=== PATIENT | female | born 1940 | race Caucasian/White ===

== ENCOUNTER → 2016-07-06 | Outpatient (REF) ==
[~2016-07-06] MED LIST: 00186-0370-20 IH; CITRACAL + D CA1 TAB PO; DALIRESP500 MCG PO; FORADIL AERO0.012 MG IH; IRON325 MG PO; LEVAQUIN 5500 MG/TA1 IV; PREDNISONE20 MG PO; PROAIR HFA0.09 MG/AC IH; PROTONIX 40MG T40 MG PO; SYMMETREL50 MG/5 ML PO; VITAMIN D31000 IU PO; ZITHROMAX 250M250 MG PO
[2016-07-06 15:06] LABS: TOTAL IRON BINDING CAPACITY 354 ug/dL (265-497)
[2016-07-06 15:32] LABS: FERRITIN 8 ng/mL (11-264)
== END ==
LOC: ZLAB.WCH 14:41
PROVIDERS: Nurse Practitioner Family
DX: Z01.89 Encounter for other specified special examinations (principal)

== ENCOUNTER → 2016-08-20 | Outpatient (REF) | LOC: ZLAB.WCH 10:48 | DX: Z01.89 Encounter for other specified special examinations (principal) ==

== ENCOUNTER 2016-08-21 16:21 | Inpatient (IN) | payer MEDICARE, BC ==
[~2016-08-21] VITALS: Ht 157.5 cm; Wt 55.0 kg
[2016-08-21] MEDS ORDERED: PROTONIX 40MG T40 MG PO (18:01)
[2016-08-21] MEDS ORDERED: PROAIR HFA0.09 MG/AC IH (18:02)
[2016-08-21 18:03] VITALS: BP 111/61; BP 89/68; PULSE 118; TEMP 99
[2016-08-21] MEDS ORDERED: SYMMETREL50 MG/5 ML PO (18:06)
[2016-08-21] MEDS ORDERED: IRON325 MG PO (18:07)
[2016-08-21] MEDS ORDERED: CITRACAL + D CA1 TAB PO (18:07)
[2016-08-21] MEDS ORDERED: VITAMIN D31000 IU PO (18:08)
[2016-08-21] MEDS ORDERED: 00186-0370-20 IH (18:09)
[2016-08-21] MEDS ORDERED: FORADIL AERO0.012 MG IH (18:10)
[2016-08-21] MEDS ORDERED: DALIRESP500 MCG PO (18:10)
[2016-08-21] MEDS ORDERED: LEVAQUIN 5500 MG/TA1 IV (18:14)
[2016-08-21 22:40] VITALS: BP 101/45; PULSE 100; TEMP 99.1
[2016-08-22] VITALS (12 sets, daily range): BP systolic 104–166; BP diastolic 46–125; PULSE 48–131; TEMP 97.4–99.1
[2016-08-22 06:49] LABS: BASO % 0.2 % (0.0-2.0); EOS # 0.1 (0.0-0.7); EOS % 0.4 % (0-4.0); GRAN # 9.9 (1.4-6.5); GRAN % 84.9 % (42.2-75.2); LYMPH # 0.7 (1.2-3.4); MEAN CELL VOLUME 95 fl (80.0-100.0); MEAN CORPUSCULAR HGB CONC 30 g/dl (33.0-37.0); MEAN PLATELET VOLUME 10.7 fl (7.4-10.4); MONO # 0.9 (0.1-0.6); MONO % 8.1 % (1.7-9.3); PLATELET COUNT 283 K/mm3 (130-400); RED BLOOD COUNT 3.19 M/mm3 (4.10-5.30); REDCELL DISTRIBUTION WIDTH-CV 13.7 % (11.5-14.5); WHITE BLOOD COUNT 11.7 K/mm3 (4.8-10.8)
[2016-08-22 06:52] LABS: HEMATOCRIT 30.4 % (37.0-47.0); HEMOGLOBIN 9.1 g/dl (12.5-16.0); MEAN CORPUSCULAR HEMOGLOBIN 29 pg (27.0-31.0)
[2016-08-22 07:04] LABS: CALCIUM 8.6 mg/dL (8.4-10.2); CREATININE, serum 0.55 mg/dL (0.52-1.25); MAGNESIUM 1.7 mg/dL (1.6-2.3); POTASSIUM 3.2 mmol/L (3.4-5.0)
[2016-08-23 02:25] VITALS: BP 105/67; PULSE 90; TEMP 98.7
[2016-08-23 05:17] VITALS: BP 109/59; PULSE 88; TEMP 98.3
[2016-08-23 08:12] LABS: MEAN CELL VOLUME 96 fl (80.0-100.0); MEAN CORPUSCULAR HGB CONC 30 g/dl (33.0-37.0); MEAN PLATELET VOLUME 11.1 fl (7.4-10.4); PLATELET COUNT 288 K/mm3 (130-400); RED BLOOD COUNT 3.11 M/mm3 (4.10-5.30); REDCELL DISTRIBUTION WIDTH-CV 13.7 % (11.5-14.5); WHITE BLOOD COUNT 7.1 K/mm3 (4.8-10.8)
[2016-08-23 08:18] LABS: CALCIUM 8.4 mg/dL (8.4-10.2); CREATININE, serum 0.58 mg/dL (0.52-1.25)
[2016-08-23 08:29] LABS: HEMATOCRIT 29.7 % (37.0-47.0); HEMOGLOBIN 8.9 g/dl (12.5-16.0); MEAN CORPUSCULAR HEMOGLOBIN 29 pg (27.0-31.0)
[2016-08-23 09:54] VITALS: BP 104/37; PULSE 61; TEMP 98
[2016-08-23 13:34] VITALS: BP 104/43; PULSE 77
[2016-08-23 17:05] VITALS: BP 115/55; PULSE 79; TEMP 98.6
[2016-08-23 22:00] VITALS: BP 120/49; PULSE 110; TEMP 98.1
[2016-08-24 06:30] VITALS: BP 131/70; PULSE 101; TEMP 98.8
[2016-08-24 08:25] LABS: CREATININE, serum 0.62 mg/dL (0.52-1.25)
[2016-08-24 08:36] LABS: POTASSIUM 2.9 mmol/L (3.4-5.0)
[2016-08-24 10:16] VITALS: BP 128/45; PULSE 103; TEMP 98
[2016-08-24 14:00] VITALS: BP 143/82; PULSE 114; TEMP 98
[2016-08-24 17:16] VITALS: BP 105/78; PULSE 51; TEMP 98.7
[2016-08-24 21:49] VITALS: BP 127/56; PULSE 109; TEMP 98.3
[2016-08-25] VITALS (13 sets, daily range): BP systolic 109–152; BP diastolic 59–90; PULSE 86–109; TEMP 97.5–98.3
[2016-08-25 07:10] LABS: BASO # 0.1 (0.0-0.2); BASO % 0.4 % (0.0-2.0); EOS # 0.1 (0.0-0.7); EOS % 0.6 % (0-4.0); GRAN # 9.7 (1.4-6.5); GRAN % 78.3 % (42.2-75.2); LYMPH # 1.2 (1.2-3.4); LYMPH % 9.5 % (20.0-51.0); MEAN CELL VOLUME 95 fl (80.0-100.0); MEAN PLATELET VOLUME 10.4 fl (7.4-10.4); MONO # 1.3 (0.1-0.6); MONO % 10.5 % (1.7-9.3); RED BLOOD COUNT 3.53 M/mm3 (4.10-5.30); REDCELL DISTRIBUTION WIDTH-CV 13.8 % (11.5-14.5); WHITE BLOOD COUNT 12.4 K/mm3 (4.8-10.8)
[2016-08-25 07:19] LABS: HEMATOCRIT 33.6 % (37.0-47.0); MEAN CORPUSCULAR HEMOGLOBIN 28 pg (27.0-31.0); PLATELET COUNT 422 K/mm3 (130-400)
[2016-08-25 10:19] LABS: MEAN CORPUSCULAR HGB CONC 30 g/dl (33.0-37.0)
[2016-08-25 11:09] LABS: CREATININE, serum 0.57 mg/dL (0.52-1.25); POTASSIUM 3.5 mmol/L (3.4-5.0)
[2016-08-25 11:40] LABS: ARTERIAL BLD GAS TCO2 CT 45.1; ARTERIAL BLOOD GAS BASE EXCESS 14.7 (-2-2); ARTERIAL BLOOD GAS HCO3 42.8 meq/L (22-26); ARTERIAL BLOOD GAS PO2 66.7 mmHg (80-100); ARTERIAL BLOOD GAS pH 7.38 (7.35-7.45); OXYHEMOGLOBIN 92.6 %
[2016-08-25 11:43] LABS: ALLEN TEST YES; ALLENS TEST RESULT PASS; ATS? YES
[2016-08-25 18:35] LABS: ADJUSTED CALCIUM 9.6 mg/dL (8.4-10.2); ALBUMIN 3.2 gm/dL (3.5-5.0); BILIRUBIN,TOTAL 0.6 mg/dL (0.0-1.0); PHOSPHOROUS 2.7 mg/dL (2.5-4.5); TOTAL PROTEIN 6.2 gm/dL (6.4-8.2)
[2016-08-26 05:43] VITALS: BP 127/62; PULSE 112; TEMP 97.7
[2016-08-26 09:35] VITALS: BP 127/59; PULSE 108; TEMP 97.8
[2016-08-26] MEDS ORDERED: ZITHROMAX 250M250 MG PO (11:31)
[2016-08-26] MEDS ORDERED: PREDNISONE20 MG PO (11:31)
[2016-08-26 11:38] VITALS: BP 127/59; PULSE 108; TEMP 97.8
== END 2016-08-26 12:50 | disposition swing bed (61) | DRG 391 ==
LOC: MEDICAL 16:21 → SURG 17:52
PROVIDERS: Family Medicine; Surgery
PROC: 0DJ08ZZ Inspection of Upper Intestinal Tract, Via Natural or Artificial Opening Endoscopic (ICD-10-PCS; 2016-08-22)
PROC: 0DH64UZ Insertion of Feeding Device into Stomach, Percutaneous Endoscopic Approach (ICD-10-PCS; principal; 2016-08-25 09:00)
DX: R10.11 Right upper quadrant pain (principal); J18.9 Pneumonia, unspecified organism; J44.0 Chronic obstructive pulmonary disease with (acute) lower respiratory infection; J44.1 Chronic obstructive pulmonary disease with (acute) exacerbation; J96.11 Chronic respiratory failure with hypoxia; K80.10 Calculus of gallbladder with chronic cholecystitis without obstruction; E44.0 Moderate protein-calorie malnutrition; Z87.891 Personal history of nicotine dependence; K21.9 Gastro-esophageal reflux disease without esophagitis; G20 Parkinson's disease; R13.10 Dysphagia, unspecified; E87.6 Hypokalemia
CPT/HCPCS: 99222; 99232-AI; C9113; J0456; J1650; J2543; J2704; J7050; J7120; J7512; Q9967

== ENCOUNTER → 2016-08-29 | Outpatient (REF) | LOC: ZLAB.WCH 18:15 | DX: Z01.89 Encounter for other specified special examinations (principal) ==

== ENCOUNTER → 2016-08-30 | Outpatient (REF) | LOC: ZLAB.WCH 09:40 | DX: Z01.89 Encounter for other specified special examinations (principal) ==

== ENCOUNTER 2018-09-11 10:50 | Inpatient (IN) | payer MEDICARE, BC ==
[~2018-09-11] VITALS: Ht 157.5 cm; Wt 51.7 kg
[2018-09-11] VITALS (721 sets, daily range): BP systolic 108–146; BP diastolic 48–59; PULSE 101–118; TEMP 98.6–99.4; O2SAT 73–100
[~2018-09-11 10:50] MED LIST changes: +DALIRESP500 MCG PEG; -DALIRESP500 MCG PO; +FERROUSGLUC256MG PEG; -IRON325 MG PO; +PROTONIX 40MG T40 MG PEG; -PROTONIX 40MG T40 MG PO
--- NOTE | 2018-09-11 11:17 | NUR ---
Nurse to nurse report recieved from Bianca HERNANDEZ. Awaiting arrival. Report communicated with Hortensia Salinas RN, who will be primary nurse.
--- NOTE | 2018-09-11 11:42 | NUR ---
Patient arrives via [facility] to ICU room 3 and is transferred to ICU bed and attached to monitors. Assessment and vitals as charted. Care assumed.
[2018-09-11] MEDS ORDERED: PREDNISONE 5MG5 MG PEG (12:16)
[2018-09-11] MEDS ORDERED: ASPIRIN 81M81 MG/TA2 PEG (12:17)
[2018-09-11] MEDS ORDERED: SYMMETREL50 MG/5 ML PEG (12:18)
--- NOTE | 2018-09-11 12:20 | NUR ---
Dr. Lucero rounds at this time. Orders as entered CPOE.
--- NOTE | 2018-09-11 12:23 | NUR ---
Dr. Fay rounds at this time. Orders as entered CPOE. Care ongoing.
[2018-09-11 13:16] LABS: ARTERIAL BLD GAS O2 SATURATION 87.9 % (92-100); ARTERIAL BLD GAS TCO2 CT 35.3; ARTERIAL BLOOD GAS BASE EXCESS 6.9 (-2-2); ARTERIAL BLOOD GAS HCO3 33.4 meq/L (22-26); ARTERIAL BLOOD GAS PCO2 60.8 mmHg (35-45); ARTERIAL BLOOD GAS PO2 56.5 mmHg (80-100); ARTERIAL BLOOD GAS pH 7.36 (7.35-7.45)
[2018-09-11 13:40] LABS: INR 1.1 (0.8-3.0); PROTHROMBIN TIME 12.3 SECONDS (9.7-12.8)
[2018-09-11 14:02] LABS: SALICYLATE < 1.0 mg/dL; TROPONIN-I < 0.012 ng/mL (0.000-0.035)
--- NOTE | 2018-09-11 14:21 | NUR ---
PICC line placed by RL at this time.
[2018-09-11 14:31] LABS: ARTERIAL BLD GAS O2 SATURATION 99.5 % (92-100); ARTERIAL BLD GAS TCO2 CT 36.3; ARTERIAL BLOOD GAS BASE EXCESS 7.4 (-2-2); ARTERIAL BLOOD GAS HCO3 34.3 meq/L (22-26); ARTERIAL BLOOD GAS pH 7.34 (7.35-7.45)
[2018-09-11 14:32] LABS: ARTERIAL BLOOD GAS PCO2 65.4 mmHg (35-45); ARTERIAL BLOOD GAS PO2 226.9 mmHg (80-100)
[2018-09-11 14:53] LABS: BILIRUBIN,TOTAL 0.5 mg/dL (0.0-1.0); CALCIUM 8.6 mg/dL (8.4-10.2); CREATININE, serum 0.57 (0.52-1.25); MAGNESIUM 1.9 mg/dL (1.6-2.3); PHOSPHOROUS 4.1 mg/dL (2.5-4.5); POTASSIUM 4.7 mmol/L (3.4-5.0); TOTAL PROTEIN 5.2 gm/dL (6.4-8.2)
[2018-09-11 15:00] LABS: PRE ALBUMIN 10.8 mg/dL (17.6-36.0)
--- NOTE | 2018-09-11 20:57 | NUR ---
Attempted to give patient her oral amantadine dose; administered approximately 2.5 ml and pt began coughing forcefully and coughed up a mixture of mucous and what appeared to be the medication. Lungs auscultated; no change from earlier assessment. Placed on oxymask and 10 L. [facility]its notifed. Gave order for speech therapy. Will continue to monitor.
[2018-09-12] VITALS (1257 sets, daily range): BP systolic 97–151; BP diastolic 49–85; PULSE 87–128; TEMP 97–98.5; O2SAT 50–100
--- NOTE | 2018-09-12 04:40 | NUR ---
Oral care provided for dry mouth. Patient requesting to take a break from the bipap and wear the oxymask for awhile. BIPAP removed; RT at bedside.
[2018-09-12 04:55] LABS: ARTERIAL BLD GAS O2 SATURATION 97.3 % (92-100); ARTERIAL BLD GAS TCO2 CT 32.4; ARTERIAL BLOOD GAS BASE EXCESS 4.2 (-2-2); ARTERIAL BLOOD GAS HCO3 30.7 meq/L (22-26); ARTERIAL BLOOD GAS PO2 103.6 mmHg (80-100); ARTERIAL BLOOD GAS pH 7.34 (7.35-7.45)
[2018-09-12 05:18] LABS: MEAN CELL VOLUME 97 fl (80.0-100.0); MEAN CORPUSCULAR HGB CONC 27 g/dl (33.0-37.0); PLATELET COUNT 300 K/mm3 (130-400); RED BLOOD COUNT 2.35 M/mm3 (4.10-5.30); REDCELL DISTRIBUTION WIDTH-CV 13.8 % (11.5-14.5); RETIC # 0.11 M/mm3 (0.02-0.16); RETIC % 4.8 % (0.5-3.52)
[2018-09-12 05:20] LABS: HEMATOCRIT 22.8 % (37.0-47.0); MEAN CORPUSCULAR HEMOGLOBIN 26 pg (27.0-31.0)
[2018-09-12 05:21] LABS: HEMOGLOBIN 6.2 g/dl (12.5-16.0)
[2018-09-12 05:31] LABS: ALBUMIN 2.9 gm/dL (3.5-5.0); BILIRUBIN,TOTAL 0.2 mg/dL (0.0-1.0); CALCIUM 8.7 mg/dL (8.4-10.2); CREATININE, serum 0.57 (0.52-1.25); POTASSIUM 4.5 mmol/L (3.4-5.0); TOTAL PROTEIN 5.5 gm/dL (6.4-8.2)
--- NOTE | 2018-09-12 05:31 | NUR ---
Notified [facility] of patient's critical HGB results. No obvious signs of bleeding noted. Awaiting further orders.
[2018-09-12 05:35] LABS: IRON,SERUM < 10 ug/dL (35-150)
[2018-09-12 05:45] LABS: TOTAL IRON BINDING CAPACITY 320 ug/dL (265-497)
[2018-09-12 05:52] LABS: BAND 9 % (0-10); HYPOCHROMIA 2+; NEUTROPHILS 89 % (42.0-75.2); PLATELET ESTIMATE NORMAL (NORMAL)
[2018-09-12 06:11] LABS: FERRITIN 10 ng/mL (11-264)
--- NOTE | 2018-09-12 08:00 | NUR ---
BEDSIDE REPORT RECEIVED FROM DAVID JUAREZ AT THIS TIME. PATIENT CURRENTLY ON 10 L/MIN O2 VIA OXYMASK. SHE IS SHORT OF BREATH AT REST AND REQUESTS TO BE REPOSITIONED. WILL CONTINUE TO MONITOR.
--- NOTE | 2018-09-12 10:00 | NUR ---
DR. AL IN TO SEE PATIENT. THEY DISCUSS CODE STATUS. AND PATIENT WISH TO TALK ABOUT IT. THEY WILL COMMUNICATE WISHES AFTER DISCUSSION.
--- NOTE | 2018-09-12 10:30 | NUR ---
PATIENT WISHES TO BE DNR AT THIS TIME.
--- NOTE | 2018-09-12 15:18 | NUR ---
CHARLENE met with patients about discharge planning. Her reports he does not think patient will be able to return home. Patient's PCP is Rina Huertas and she obtains prescriptions from [facility]. Patient uses trilogy, oxygen, a walker and enteral/feeding supplies at home. Patient does not use any home health services at this time. CHARLENE will continue to follow.
--- NOTE | 2018-09-12 15:20 | NUR ---
PATIENT PLACED BACK ON BIPAP AT THIS TIME, PER HER REQUEST. SHE HAD ONLY BEEN OFF FOR ABOUT 10 MINUTES AFTER RECEIVING BREATHING TREATMENT. WILL CONTINUE TO MONITOR
--- NOTE | 2018-09-12 19:29 | NUR ---
Received bedside report from DAVID Walker. Family at bedside. Patient currenlty on oxymask; requesting to be placed back on BIPAP.
--- NOTE | 2018-09-12 22:50 | NUR ---
Assisted patient with scar-care and repositioning. RT at bedside to place bipap. After placing BIPAP at 30% 02 was in the mid 80's. Patient dyspneic with the exertion of repositioning. Waited several minutes for 02 to raise, but continued to be in the 80's. At this time RT raised 02 to 40% and o2 increased to mid 90's. Will continue to monitor and decrease 02 if able.
[2018-09-13] VITALS (743 sets, daily range): BP systolic 111–131; BP diastolic 53–90; PULSE 90–109; TEMP 97.8–97.9; O2SAT 73–100
--- NOTE | 2018-09-13 03:45 | NUR ---
Provided a bed bath and repositioning. Patient grateful for bath and feels "better". Tolerated well. Will continue to monitor.
[2018-09-13 03:59] LABS: ARTERIAL BLOOD GAS pH 7.32 (7.35-7.45)
[2018-09-13 04:00] LABS: ARTERIAL BLOOD GAS BASE EXCESS 3.8 (-2-2); ARTERIAL BLOOD GAS HCO3 30.8 meq/L (22-26); ARTERIAL BLOOD GAS PCO2 60.5 mmHg (35-45); ARTERIAL BLOOD GAS PO2 71.6 mmHg (80-100)
[2018-09-13 05:18] LABS: BASO % 0.1 % (0.0-2.0); GRAN # 19.5 (1.4-6.5); GRAN % 95.6 % (42.2-75.2); LYMPH # 0.1 (1.2-3.4); LYMPH % 0.6 % (20.0-51.0); MEAN CELL VOLUME 97 fl (80.0-100.0); MEAN CORPUSCULAR HGB CONC 27 g/dl (33.0-37.0); MEAN PLATELET VOLUME 11.4 fl (7.4-10.4); MONO # 0.6 (0.1-0.6); MONO % 3.1 % (1.7-9.3); PLATELET COUNT 323 K/mm3 (130-400); RED BLOOD COUNT 2.81 M/mm3 (4.10-5.30)
[2018-09-13 05:21] LABS: PROTHROMBIN TIME 11.5 SECONDS (9.7-12.8)
[2018-09-13 05:23] LABS: HEMATOCRIT 27.3 % (37.0-47.0); HEMOGLOBIN 7.4 g/dl (12.5-16.0); MEAN CORPUSCULAR HEMOGLOBIN 26 pg (27.0-31.0)
[2018-09-13 05:28] LABS: ALBUMIN 2.9 gm/dL (3.5-5.0); BILIRUBIN,TOTAL 0.3 mg/dL (0.0-1.0); CALCIUM 8.8 mg/dL (8.4-10.2); CREATININE, serum 0.57 (0.52-1.25); POTASSIUM 4.6 mmol/L (3.4-5.0); TOTAL PROTEIN 5.7 gm/dL (6.4-8.2)
--- NOTE | 2018-09-13 06:05 | NUR ---
Patient requesting to have a break from BIPAP. Placed oxymask at 5L and assisted with oral care. Also requesting the "suction tube". Oral suction set up and patient able to utilize this independently.
--- NOTE | 2018-09-13 07:25 | NUR ---
Report recieved from DAVID Carbajal. Patient resting in bed on BiPap at this time. NS infuses to uncomplicated ROSALINDA PICC at 50ml/hr. Rivero with positive yellow UO. Patient denies needs or pain. Care resumed.
--- NOTE | 2018-09-13 07:25 | NUR ---
Report given to DAVID Bazan. Patient care transfered.
--- NOTE | 2018-09-13 08:00 | NUR ---
During AM assessment and medication administration patient asks "I am getting any better?" This RN relays that her labs are not much worse but not much improved. She asks "Is this my fault I'm here because I didn't wear my mask at home?" This RN provides support and communicates that while use of her home trilogy would have been ideal that she has a chronic disease process and need not feel guilty for being in the hospital. Patient states "Do I have to stay here? I don't want to here. Can I go home to ?" Support again provided and patient is reassured that staff will do all they can to see her preferences are met. POC discussed to include MD rounds, and palliative care consult. Patient is tearful but indicates she is happy with this plan. Care ongoing.
--- NOTE | 2018-09-13 09:05 | NUR ---
Mikaela Rosales, Palliative care RN visits with patient at this time regarding goals of care. Patient expresses a desire to return home on hospice. Mikaela will return when is present to discuss further with patient.
--- NOTE | 2018-09-13 09:35 | NUR ---
Met with pt by herself in the room. She specifically requested going home with hospice services. We talked briefly about that and will revisit when her gets here in about 30 minutes.
--- NOTE | 2018-09-13 10:25 | NUR ---
Palliative care meeting with family at bedside an social work to assist at this time.
--- NOTE | 2018-09-13 10:45 | NUR ---
Patient with report of 6/10 pain to right lateral chest and anxiety. See MAR for intervention.
--- NOTE | 2018-09-13 11:41 | NUR ---
Family is now meeting with Paul from [facility]. After much thought, they are electing to transfer to the [facility] this afternoon. Ollie does not feel that he can manage her care by himself at home and this thought is supported by his brother in law. Primary nurse and Kaila IBARRA were also present during this conversation and will contact physician for orders. Packet of information was given to Paul from [facility] for review on this patient. We had prepared a DPOA-HC for earlier but she had just been medicated and was not able to sign until medication effects decrease.
--- NOTE | 2018-09-13 12:10 | NUR ---
Family meeting with hospice house provider relations representative, this RN, Kaila DUBON, and Mikaela palliative care to discuss best POC. determines a transfer to hospice house today is best and patient brother agrees with this. Kaila to contact Dr. Cummings and EMS for discharge and transfer orders. Care ongoing.
--- NOTE | 2018-09-13 12:15 | NUR ---
PICC intact right upper arm. With sterile technique right upper arm PICC dressing change done with insertion site cleansed with ChloraPrep 1, chlorhexidine impregnated disc applied, skin prep, StatLock, and Tegaderm applied. Family at the bedside. No signs or symptoms of IV complications noted. Patient really unable to address any concerns. The plan is for patient to be discharged to hospice house later today. Arm wrapped with Tayo to protect catheter.
--- NOTE | 2018-09-13 12:41 | NUR ---
Family cub reporter present. Extended family present. Patient frequently drowsy but denies pain or anxiety at this time. Care ongoing.
--- NOTE | 2018-09-13 13:24 | NUR ---
CHARLENE and pallative care nurse, Mikaela, met with patient and family about goals of care. Patient and patient's would like to pursue hospice services through [facility]. After speaking with [facility], patient's decided to utilize the [facility]. CHARLENE will fax discharge orders to [facility]. CHARLENE also arranged EMS transportation for 3pm.
[2018-09-13] MEDS ORDERED: IPRATROPIUM BROM3 M1 IH (13:58)
[2018-09-13] MEDS ORDERED: ATIVAN 1MG T1 MG/TAB PO (14:01)
[2018-09-13] MEDS ORDERED: TRANSDERM-0.5 MG/21 TD (14:01)
[2018-09-13] MEDS ORDERED: ROXANOL 20MG20 MG/ML PO (14:01)
--- NOTE | 2018-09-13 15:05 | NUR ---
Patient departs with [facility] for hospice house. Patient belongings sent with family. Prior report called to DAVID Landeros.
== END 2018-09-13 15:05 | disposition hospice, home (50) | DRG 871 ==
LOC: ICU 10:50
PROVIDERS: Internal Medicine Critical Care Medicine; ADMIT Internal Medicine
PROC: 02HV33Z Insertion of Infusion Device into Superior Vena Cava, Percutaneous Approach (ICD-10-PCS; principal; 2018-09-11)
DX: A41.9 Sepsis, unspecified organism (principal); J18.1 Lobar pneumonia, unspecified organism; J96.21 Acute and chronic respiratory failure with hypoxia; J44.0 Chronic obstructive pulmonary disease with (acute) lower respiratory infection; J44.1 Chronic obstructive pulmonary disease with (acute) exacerbation; Z66 Do not resuscitate; Z51.5 Encounter for palliative care; D50.9 Iron deficiency anemia, unspecified; Z99.81 Dependence on supplemental oxygen; R13.19 Other dysphagia; Z87.891 Personal history of nicotine dependence; Z88.1 Allergy status to other antibiotic agents; Z91.030 Bee allergy status; Z88.2 Allergy status to sulfonamides; Z91.09 Other allergy status, other than to drugs and biological substances
CPT/HCPCS: 99222; 99233-AI; 99239; A4216; C1751; C9113; J0456; J0692; J1650; J1815; J2060; J2270; J2920; J3370; J7030; J7050; P9016

== ENCOUNTER → 2018-09-12 | Outpatient (REF) ==
[~2018-09-12] MED LIST changes: +ASPIRIN 81M81 MG/TA2 PEG; +ATIVAN 1MG T1 MG/TAB PO; +IPRATROPIUM BROM3 M1 IH; +PREDNISONE 5MG5 MG PEG; +ROXANOL 20MG20 MG/ML PO; +SYMMETREL50 MG/5 ML PEG; +TRANSDERM-0.5 MG/21 TD
== END ==
LOC: ZLAB.WCH 09:28
DX: Z01.89 Encounter for other specified special examinations (principal)